=== PATIENT | female | born 1980 | race Caucasian/White ===

== ENCOUNTER 2017-11-21 13:44 | Outpatient (CLI) | payer OTHER ==
[2017-11-22 02:21] LABS: T3-UPTAKE 33.3 % (25.4-41.2)
== END 2017-11-21 13:45 ==
LOC: LAB 13:44
PROVIDERS: ATTEND Family Medicine
DX: E06.3 Autoimmune thyroiditis (principal)
CPT/HCPCS: 84436; 84479; 86376; 86800